=== PATIENT | female | born 1945 | race Caucasian/White ===

== ENCOUNTER → 2023-11-14 | Outpatient (CLI) | payer MEDICARE, OTHER ==
[~2023-11-14] VITALS: Ht 170.2 cm; Wt 50.5 kg
[~2023-11-14] MED LIST: LISI-894 PO
[2023-11-14 09:36] VITALS: BP 125/72; PULSE 65; RESP 18; TEMP 97.8; O2SAT 99
== END | disposition home or self-care (01) ==
LOC: SRCNTR 09:16
PROVIDERS: ATTEND Internal Medicine
DX: J90 Pleural effusion, not elsewhere classified (principal); I10 Essential (primary) hypertension; Z79.899 Other long term (current) drug therapy; Z98.890 Other specified postprocedural states
CPT/HCPCS: G0463; Z7500

== ENCOUNTER → 2023-12-20 | Outpatient (CLI) | payer MEDICARE, OTHER ==
[~2023-12-20] VITALS: Ht 170.2 cm; Wt 50.0 kg
[2023-12-20 09:34] VITALS: BP 143/80; PULSE 71; RESP 16; TEMP 98.2; O2SAT 100
== END | disposition home or self-care (01) ==
LOC: SRCNTR 09:22
PROVIDERS: ATTEND Internal Medicine
DX: J90 Pleural effusion, not elsewhere classified (principal); Z09 Encounter for follow-up examination after completed treatment for conditions other than malignant neoplasm
CPT/HCPCS: G0463

== ENCOUNTER → 2024-01-17 | Outpatient (CLI) | payer MEDICARE, OTHER ==
[~2024-01-17] VITALS: Ht 170.2 cm; Wt 50.0 kg
[2024-01-17 08:54] VITALS: BP 147/76; PULSE 70; RESP 16; TEMP 98.2; O2SAT 99
== END | disposition home or self-care (01) ==
LOC: SRCNTR 08:42
PROVIDERS: ATTEND Internal Medicine
DX: R07.89 Other chest pain (principal); J90 Pleural effusion, not elsewhere classified; Z98.890 Other specified postprocedural states
CPT/HCPCS: G0463; Z7500